=== PATIENT | male | born 1970 | race Hispanic/Latino ===

== ENCOUNTER 2024-10-17 21:20 | Emergency (ER) | payer BC ==
[~2024-10-17] VITALS: Ht 177.8 cm; Wt 145.1 kg
[2024-10-17 21:22] VITALS: TEMP 98.1
[2024-10-17] MEDS ORDERED: KETOROLAC TROMETHAMINE 60 MG/2 ML VIAL ONE (21:47)
[2024-10-17] MEDS: ORPHENADRINE CITRATE 30 MG/ML VIAL IM ONE (21:51)
[2024-10-17] MEDS: KETOROLAC TROMETHAMINE 60 MG/2 ML VIAL IM ONE (21:51)
[2024-10-17] MEDS ORDERED: NAPROSYN500 MG PO (22:39)
[2024-10-17] MEDS ORDERED: CYCLOBENZAPRINE5 MG PO (22:39)
[2024-10-17 22:44] VITALS: PULSE 73; RESP 18; O2SAT 96
== END 2024-10-17 22:43 | disposition home or self-care (01) ==
LOC: ER 21:24
DX: S39.012A Strain of muscle, fascia and tendon of lower back, initial encounter (principal); X50.1XXA Overexertion from prolonged static or awkward postures, initial encounter; Y92.89 Other specified places as the place of occurrence of the external cause; F17.210 Nicotine dependence, cigarettes, uncomplicated
CPT/HCPCS: 99283; J1885; J2360